=== PATIENT | male | born 1975 | race Caucasian/White ===

== ENCOUNTER 2016-04-21 10:04 | Emergency (ER) | payer OTHER ==
[2016-04-21 10:41] LABS: HEMOGLOBIN 15.1 gm/dl (14.0-17.5); RED BLOOD COUNT 4.63 M/UL (4.20-5.50); WHITE BLOOD COUNT 5.2 K/UL (4.5-11.0)
[2016-04-21 11:04] LABS: BUN/CREATININE RATIO 12 (0-10)
== END 2016-04-21 13:30 | disposition home or self-care (01) ==
LOC: ER1 10:04
PROVIDERS: Emergency Medicine
DX: J18.9 Pneumonia, unspecified organism (principal); F17.210 Nicotine dependence, cigarettes, uncomplicated
CPT/HCPCS: 36415; 71010; 80053; 80307; 81001; 82150; 82550; 82553; 83690; 83874; 84484; 85025; 93005; 96374; 99285; J1885; J7050; Q9963

== ENCOUNTER 2016-04-28 15:36 | Emergency (ER) | payer OTHER ==
[2016-04-28 16:21] LABS: RED BLOOD COUNT 4.34 M/UL (4.20-5.50); WHITE BLOOD COUNT 5.4 K/UL (4.5-11.0)
[2016-04-28 16:42] LABS: BUN/CREATININE RATIO 21 (0-10)
== END 2016-04-28 17:45 | disposition home or self-care (01) ==
LOC: ER1 15:36
PROVIDERS: Emergency Medicine
DX: R00.2 Palpitations (principal); K75.9 Inflammatory liver disease, unspecified
CPT/HCPCS: 36415; 71010; 80053; 82550; 82553; 83874; 83880; 84484; 85025; 85379; 93005; 99285

== ENCOUNTER 2016-05-08 03:31 | Inpatient (IN) | payer OTHER ==
[~2016-05-08] VITALS: Ht 182.9 cm; Wt 72.6 kg
[2016-05-08 04:17] LABS: HEMOGLOBIN 13.3 gm/dl (14.0-17.5); RED BLOOD COUNT 4.12 M/UL (4.20-5.50); WHITE BLOOD COUNT 16.7 K/UL (4.5-11.0)
[2016-05-08 04:48] LABS: BUN/CREATININE RATIO 18 (0-10)
[2016-05-08] MEDS ORDERED: CATAPRES 0.1MG0.1 MG PO (08:59)
[2016-05-09 06:16] LABS: HEMOGLOBIN 12.4 gm/dl (14.0-17.5); RED BLOOD COUNT 3.85 M/UL (4.20-5.50)
[2016-05-09 06:59] LABS: BUN/CREATININE RATIO 14 (0-10)
[2016-05-10 05:18] LABS: BUN/CREATININE RATIO 14 (0-10)
[2016-05-11 08:21] LABS: BUN/CREATININE RATIO 19 (0-10)
[2016-05-12 04:45] LABS: BUN/CREATININE RATIO 24 (0-10)
[2016-05-13 05:07] LABS: BUN/CREATININE RATIO 24 (0-10)
[2016-05-14 04:31] LABS: BUN/CREATININE RATIO 17 (0-10)
== END 2016-05-14 15:15 | disposition home or self-care (01) | DRG 513 ==
LOC: ER1 03:31 → ZEROF 04:51 → MED SURG 4 04:51 → ZEROF 04:51 → MED SURG 4 19:01
PROVIDERS: Physician Assistant; ADMIT Orthopaedic Surgery
PROC: 0L980ZZ Drainage of Left Hand Tendon, Open Approach (ICD-10-PCS; 2016-05-08)
PROC: 0JBK0ZZ Excision of Left Hand Subcutaneous Tissue and Fascia, Open Approach (ICD-10-PCS; principal; 2016-05-08 17:30)
DX: M65.142 Other infective (teno)synovitis, left hand (principal); L02.512 Cutaneous abscess of left hand; L03.012 Cellulitis of left finger; F41.9 Anxiety disorder, unspecified; I10 Essential (primary) hypertension; F17.210 Nicotine dependence, cigarettes, uncomplicated; B95.62 Methicillin resistant Staphylococcus aureus infection as the cause of diseases classified elsewhere
CPT/HCPCS: 36415; 73130; 80048; 80053; 80074; 80202; 83605; 85025; 86140; 87040; 87070; 87077; 87186; 87205; 87390; 96361; 96365; 96375; 96376; 99284; J1885; J2250; J2270; J2405; J2543; J2795; J3010; J3370; J7030; J7050; J7070; J7120